=== PATIENT | female | born 1995 | race African-American/Black ===

== ENCOUNTER 2017-01-27 14:37 | Emergency (ER) | payer MEDICAID ==
[~2017-01-27] VITALS: Ht 162.6 cm; Wt 90.7 kg
[2017-01-27 17:10] VITALS: BP 147/85
== END 2017-01-27 17:58 | disposition home or self-care (01) ==
LOC: ER 14:46
DX: O20.0 Threatened abortion (principal); O99.331 Smoking (tobacco) complicating pregnancy, first trimester; O26.891 Other specified pregnancy related conditions, first trimester; I48.91 Unspecified atrial fibrillation; Z88.6 Allergy status to analgesic agent; Z3A.01 Less than 8 weeks gestation of pregnancy
CPT/HCPCS: 36415; 76801; 76817; 84702

== ENCOUNTER 2018-05-03 19:52 | Emergency (ER) | payer MEDICAID | END 2018-05-03 20:56 | disposition left against medical advice (07) | LOC: ER 20:01 | DX: R11.0 Nausea (principal); Z53.21 Procedure and treatment not carried out due to patient leaving prior to being seen by health care provider ==